=== PATIENT | female | born 1935 | race Caucasian/White ===

== ENCOUNTER 2017-03-07 17:24 | Emergency (ER) | payer MEDICARE | END 2017-03-07 18:30 | disposition home or self-care (01) | LOC: ER 17:24 | DX: S51.811A Laceration without foreign body of right forearm, initial encounter (principal); I10 Essential (primary) hypertension; Z79.899 Other long term (current) drug therapy; Z23 Encounter for immunization; Z99.81 Dependence on supplemental oxygen; W26.8XXA Contact with other sharp object(s), not elsewhere classified, initial encounter; Y92.009 Unspecified place in unspecified non-institutional (private) residence as the place of occurrence of the external cause | CPT/HCPCS: 90471 ==